=== PATIENT | male | born 1965 ===

== ENCOUNTER 2017-08-26 20:10 | Observation (INO) | payer OTHER ==
[2017-08-26 21:59] LABS: BASO % 0.5 % (0.0-2.0); EOS # 0.2 K/uL (0.0-0.7); EOS % 3.1 % (0.0-4.0); HEMOGLOBIN 14.9 g/dL (12.0-18.0); LYMPH # 2.9 K/uL (1.0-4.3); LYMPH % 38.8 % (20.0-40.0); MEAN CELL VOLUME 89.4 fl (80.0-94.0); MEAN CORPUSCULAR HEMOGLOBIN 30.4 pg (27.0-31.0); MEAN PLATELET VOLUME 8.8 fl (7.2-11.7); MONO # 0.5 K/uL (0.0-0.8); MONO % 6.7 % (0.0-10.0); NEUT # 3.8 K/uL (1.8-7.0); NEUT % 50.9 % (50.0-75.0); NRBC % 0.1 % (0.0-0.0); RBC 4.9 Mil/uL (4.40-5.90); RED CELL DISTRIBUTION WIDTH 13.3 % (11.5-14.5); WHITE BLOOD COUNT 7.4 K/uL (4.8-10.8)
--- NOTE | 2017-08-26 22:00 | ED PDOC ---
HPI: Chest Pain Time Seen by Provider: 08/26/17 20:32 Chief Complaint (Nursing): Chest Pain Chief Complaint (Provider): Chest Pain History Per: Patient History/Exam Limitations: no limitations Onset/Duration Of Symptoms: Days (x3), Intermittent Episodes Current Symptoms Are (Timing): Still Present Quality: Pressure Associated Symptoms: Dyspnea Exacerbating Factors: Exertion Alleviating Factors: Rest Additional Complaint(s): Moe Abrams is a 52 year old male, with a past medical history of HTN, diabetes and hypercholesterolemia, who presents to the emergency department complaining of intermittent chest pain associated with shortness of breath onset for x3 days. Patient states pain is exacerbated by exertion and resolves with rest. Pain does not radiate but it's localized on the left side and substernal region, described as pressure-like. She denies any fever, chills or other medical complaints. PMD: None provided. Past Medical History Reviewed: Historical Data, Nursing Documentation, Vital Signs Vital Signs: Last Vital Signs Temp 98.0 F 08/26/17 20:16 Pulse 80 08/26/17 22:55 Resp 16 08/26/17 20:16 BP 167/94 H 08/26/17 20:16 Pulse Ox 98 08/26/17 22:55 - Medical History PMH: Diabetes, HTN, Hypercholesterolemia - Surgical History Surgical History: No Surg Hx - Family History Family History: States: Diabetes - Social History Current smoker - smoking cessation education provided: No Alcohol: Occasional Drugs: Denies - Allergies Allergies/Adverse Reactions: Allergies Allergy/AdvReac Type Severity Reaction Status Date / Time No Known Allergies Allergy Verified 08/26/17 20:15 Review of Systems ROS Statement: Except As Marked, All Systems Reviewed And Found Negative Constitutional: Negative for: Fever, Chills Cardiovascular: Positive for: Chest Pain (pressure-like intermittent) Respiratory: Positive for: Shortness of Breath - Laboratory Results Result Diagrams: 08/26/17 21:50 08/26/17 21:50 - ECG ECG Rhythm: Positive for: Normal QRS, Normal ST Segment, Sinus Rhythm (normal) Rate: 80 O2 Sat by Pulse Oximetry: 98 (RA) Pulse Ox Interpretation: Normal Medical Decision Making Medical Decision Making: Initial Impression: Chest pain with cardiac risk factors, will need hospitalization with enzymes to rule out ACS. Differential includes but not limited to PE, costochondritis, angina. Initial Plan: --EKG --Alcohol serum --CMP --Magnesium --Phosphorus --Troponin I --Troponin I Q8H --Troponin I Q8H --Urine dipstick --CBC w/ differential --D Dimer --PTT --PT --Chest two views (PA/LAT) [RAD] --Aspirin 325 mg PO --Reevaluation -Labs demonstrate hypoglycemia, otherwise no clinical significant abnormality. CXR negative for effusion and infiltrate. 22:55 --Discussed case with Dr. Garcia for hospitalization. Scribe Attestation: Documented by Abdi Jaimes, acting as a scribe for Jessica Jiménez MD Provider Scribe Attestation: All medical record entries made by the Scribe were at my direction and personally dictated by me. I have reviewed the chart and agree that the record accurately reflects my personal performance of the history, physical exam, medical decision making, and the department course for this patient. I have also personally directed, reviewed, and agree with the discharge instructions and disposition. Disposition - Disposition Forms: [employer] (Latvian)
[2017-08-26 22:09] LABS: PROTHROMBIN TIME 10.2 Seconds (9.8-13.1)
[2017-08-26 22:10] LABS: INR 0.9 (0.9-1.2); PARTIAL THROMBOPLASTIN TIME 33.9 Seconds (25.6-37.1)
[2017-08-26 22:25] LABS: ALB/GLOB RATIO 1.3 (1.0-2.1); ALBUMIN 4.1 g/dL (3.5-5.0); ALT/SGPT 42 U/L (21-72); AST/SGOT 31 U/L (17-59); BLOOD UREA NITROGEN 15 mg/dl (9-20); CALCIUM 9.4 mg/dL (8.4-10.2); GFR AFRICAN-AMERICAN > 60; GFR NON-AFRICAN AMERICAN > 60
[2017-08-27 06:54] LABS: HDL CHOLESTEROL 36 MG/DL (30-70)
[2017-08-27 07:05] LABS: LDL CHOLESTEROL 149 mg/dL (0-129)
--- NOTE | 2017-08-27 08:09 | CARD ---
APPROVED REPORT EKG Measurement Heart [id number] <Conclusion> Normal sinus rhythm Normal ECG
--- NOTE | 2017-08-27 08:25 | RAD ---
HISTORY: chest pain COMPARISON: No prior. TECHNIQUE: Chest PA and lateral FINDINGS: LUNGS: No acute infiltrate bilaterally. Linear atelectasis or fibrosis seen minimally at the left base. Borderline left hemidiaphragm elevation. PLEURA: No significant pleural effusion identified. No pneumothorax apparent. CARDIOVASCULAR: Normal. OSSEOUS STRUCTURES: No significant abnormalities. VISUALIZED UPPER ABDOMEN: Normal. OTHER FINDINGS: None. IMPRESSION: Borderline left hemidiaphragm elevation. Trace linear atelectasis or fibrosis left base. No acute infiltrate or pleural effusion bilaterally.
--- NOTE | 2017-08-27 09:41 | HP ---
HISTORY OF PRESENT ILLNESS: Mr. Abrams is a 52-year-old male who was admitted via the Emergency Room because of chest pain, which started about 3 days prior to this presentation. He indicates the pain is pressure-like in nature and radiates to the left side of the arm. He did not want to come to the Emergency Room because pain was on and off for the past several days. He finally decided to have it checked out. PAST MEDICAL HISTORY: Hypertension, hyperlipidemia, and diabetes but has been noncompliant to follow up . FAMILY HISTORY: Remarkable for mother who has hypertension. SOCIAL HISTORY: He denies alcohol or drug use, but indicated that he has been on disability for the past several years because of back problems. PHYSICAL EXAMINATION: GENERAL: The patient is alert and oriented. VITAL SIGNS: Blood pressure 167/94 with the pulse of 80, respiratory rate is 18. He is febrile. O2 sat is 98% on room air. SKIN: Shows fair turgor. HEENT: Pupils are equal and reactive to light and accommodation. JVP flat. LUNGS: Clear. HEART: Regular. No murmurs or gallop. No chest wall tenderness. ABDOMEN: Soft and nontender, no organomegaly. EXTREMITIES: Appear unkempt with dirty fingers. RECTAL AND GENITALIA: Deferred. CENTRAL NERVOUS SYSTEM: Grossly intact. LABORATORY DATA: WBC 7.4, hemoglobin 14.9, and platelet count 177,000. Sodium 142, potassium 4.2, BUN 15, creatinine 0.6, and serum glucose 285. EKG; normal sinus rhythm, official report pending. Chest x-ray; no acute cardiopulmonary pathology noted. Lipid profile; cholesterol 203, triglycerides 155, and LDL 149. Troponin less than 0.012. IMPRESSION: Chest pain, one has to rule out acute coronary syndrome, hypertension, hyperglycemia secondary to type 2 diabetes, uncontrolled. PLAN: The plan is cardiology evaluation. If the patient is cleared by Cardiology, we will probably discharge and have him follow up with his primary care physician as an outpatient. He is advised to comply with his medications, which have been reordered including aspirin and Lovenox. Peter Garcia MD [facility] # [id number]
--- NOTE | 2017-08-27 11:19 | CP.PCM.CON ---
History of Present Illness - History of Present Illness History of Present Illness: 52 y/o male admitted with chest pains Pt has had these pains daily x 3 days usually comes on at rest lasts 1 hour no relation to exertion no radiation Troponins: neg EKG: normal PMH: HTN DM II Hyperlipidemia Past Patient History - Past Medical History & Family History Past Medical History?: Yes - Past Social History Smoking Status: Former Smoker - CARDIAC Hx Cardiac Disorders: Yes Hx Hypercholesterolemia: Yes Hx Hypertension: Yes - PULMONARY Hx Respiratory Disorders: No - NEUROLOGICAL Hx Neurological Disorder: No - HEENT Hx HEENT Problems: No - RENAL Hx Chronic Kidney Disease: No - ENDOCRINE/METABOLIC Hx Endocrine Disorders: Yes Hx Diabetes Mellitus Type 2: Yes - HEMATOLOGICAL/ONCOLOGICAL Hx Blood Disorders: No - INTEGUMENTARY Hx Dermatological Problems: No - MUSCULOSKELETAL/RHEUMATOLOGICAL Hx Musculoskeletal Disorders: No Hx Falls: No - GASTROINTESTINAL Hx Gastrointestinal Disorders: No - GENITOURINARY/GYNECOLOGICAL Hx Genitourinary Disorders: No - PSYCHIATRIC Hx Psychophysiologic Disorder: No Hx Substance Use: No - SURGICAL HISTORY Hx Surgeries: No - ANESTHESIA Hx Anesthesia: No Hx Anesthesia Reactions: No Hx Malignant Hyperthermia: No Has any member of the family had a problem w/ anesthesia?: No Meds Allergies/Adverse Reactions: Allergies Allergy/AdvReac Type Severity Reaction Status Date / Time No Known Allergies Allergy Verified 08/26/17 20:15 - Medications Medications: Current Medications Aspirin (Ecotrin) 81 mg PO DAILY [facility] Last Admin: 08/27/17 09:00 Dose: 81 mg Ibuprofen (Motrin Tab) 600 mg PO Q6 PRN PRN Reason: Pain, moderate (4-7) Metformin HCl (Glucophage) 1,000 mg PO BID [facility] Last Admin: 08/27/17 09:00 Dose: 1,000 mg Physical Exam - Constitutional Appears: Well - Neck Exam Neck exam: Positive for: Normal Inspection - Respiratory Exam Respiratory Exam: NORMAL BREATHING PATTERN - Cardiovascular Exam Cardiovascular Exam: REGULAR RHYTHM Results - Vital Signs Recent Vital Signs: Last Vital Signs Temp 98 F 08/27/17 08:00 Pulse 60 08/27/17 08:00 Resp 18 08/27/17 08:00 BP 120/71 08/27/17 08:00 Pulse Ox 98 08/27/17 08:00 - Labs Result Diagrams: 08/26/17 21:50 08/26/17 21:50 Labs: Laboratory Results - last 24 hr 08/26/17 08/26/17 08/26/17 21:36 21:50 21:50 WBC 7.4 RBC 4.90 Hgb 14.9 Hct 43.8 MCV 89.4 MCH 30.4 MCHC 34.0 RDW 13.3 Plt Count 177 MPV 8.8 Neut % (Auto) 50.9 Lymph % (Auto) 38.8 Custer % (Auto) 6.7 Eos % (Auto) 3.1 Baso % (Auto) 0.5 Neut # (Auto) 3.8 Lymph # (Auto) 2.9 Custer # (Auto) 0.5 Eos # (Auto) 0.2 Baso # (Auto) 0.0 PT INR APTT D-Dimer, Quantitative Sodium 142 Potassium 4.2 Chloride 99 Carbon Dioxide 27 Anion Gap 20 BUN 15 Creatinine 0.6 L Est GFR ( Amer) > 60 Est GFR (Non-Af Amer) > 60 POC Glucose (mg/dL) 273 H Random Glucose 285 H Calcium 9.4 Phosphorus 3.3 Magnesium 1.7 Total Bilirubin 0.3 AST 31 ALT 42 Alkaline Phosphatase 98 Troponin I < 0.0120 Total Protein 7.3 Albumin 4.1 Globulin 3.2 Albumin/Globulin Ratio 1.3 Triglycerides Cholesterol LDL Cholesterol Direct HDL Cholesterol Alcohol, Quantitative < 10 08/26/17 08/27/17 08/27/17 21:50 05:21 06:00 WBC RBC Hgb Hct MCV MCH MCHC RDW Plt Count MPV Neut % (Auto) Lymph % (Auto) Custer % (Auto) Eos % (Auto) Baso % (Auto) Neut # (Auto) Lymph # (Auto) Custer # (Auto) Eos # (Auto) Baso # (Auto) PT 10.2 INR 0.9 APTT 33.9 D-Dimer, Quantitative 106 Sodium Potassium Chloride Carbon Dioxide Anion Gap BUN Creatinine Est GFR ( Amer) Est GFR (Non-Af Amer) POC Glucose (mg/dL) 219 H Random Glucose Calcium Phosphorus Magnesium Total Bilirubin AST ALT Alkaline Phosphatase Troponin I < 0.0120 Total Protein Albumin Globulin Albumin/Globulin Ratio Triglycerides Cholesterol LDL Cholesterol Direct HDL Cholesterol Alcohol, Quantitative 08/27/17 06:00 WBC RBC Hgb Hct MCV MCH MCHC RDW Plt Count MPV Neut % (Auto) Lymph % (Auto) Custer % (Auto) Eos % (Auto) Baso % (Auto) Neut # (Auto) Lymph # (Auto) Custer # (Auto) Eos # (Auto) Baso # (Auto) PT INR APTT D-Dimer, Quantitative Sodium Potassium Chloride Carbon Dioxide Anion Gap BUN Creatinine Est GFR ( Amer) Est GFR (Non-Af Amer) POC Glucose (mg/dL) Random Glucose Calcium Phosphorus Magnesium Total Bilirubin AST ALT Alkaline Phosphatase Troponin I Total Protein Albumin Globulin Albumin/Globulin Ratio Triglycerides 155 H Cholesterol 203 H LDL Cholesterol Direct 149 H HDL Cholesterol 36 Alcohol, Quantitative Assessment & Plan (1) Atypical chest pain Assessment and Plan: Non cardiac chest pain pt may be d/c ed Status: Acute
[2017-08-27 12:28] VITALS: BP 137/78; PULSE 73; RESP 20; TEMP 98.5; O2SAT 95
--- NOTE | 2017-08-30 09:36 | CP.PCM.DIS ---
Provider - Provider Date of Admission: 08/26/17 22:53 Attending physician: Peter Garcia MD Time Spent in preparation of Discharge (in minutes): 30 Diagnosis - Discharge Diagnosis (1) Hypertension Status: Acute (2) Diabetes 1.5, managed as type 2 Status: Acute (3) Atypical chest pain Status: Acute Hospital Course - Lab Results Lab Results: Most Recent Lab Values WBC 7.4 K/uL (4.8-10.8) 08/26/17 21:50 RBC 4.90 Mil/uL (4.40-5.90) 08/26/17 21:50 Hgb 14.9 g/dL (12.0-18.0) 08/26/17 21:50 Hct 43.8 % (35.0-51.0) 08/26/17 21:50 MCV 89.4 fl (80.0-94.0) 08/26/17 21:50 MCH 30.4 pg (27.0-31.0) 08/26/17 21:50 MCHC 34.0 g/dL (33.0-37.0) 08/26/17 21:50 RDW 13.3 % (11.5-14.5) 08/26/17 21:50 Plt Count 177 K/uL (130-400) 08/26/17 21:50 MPV 8.8 fl (7.2-11.7) 08/26/17 21:50 Neut % (Auto) 50.9 % (50.0-75.0) 08/26/17 21:50 Lymph % (Auto) 38.8 % (20.0-40.0) 08/26/17 21:50 Cameron % (Auto) 6.7 % (0.0-10.0) 08/26/17 21:50 Eos % (Auto) 3.1 % (0.0-4.0) 08/26/17 21:50 Baso % (Auto) 0.5 % (0.0-2.0) 08/26/17 21:50 Neut # (Auto) 3.8 K/uL (1.8-7.0) 08/26/17 21:50 Lymph # (Auto) 2.9 K/uL (1.0-4.3) 08/26/17 21:50 Cameron # (Auto) 0.5 K/uL (0.0-0.8) 08/26/17 21:50 Eos # (Auto) 0.2 K/uL (0.0-0.7) 08/26/17 21:50 Baso # (Auto) 0.0 K/uL (0.0-0.2) 08/26/17 21:50 PT 10.2 Seconds (9.8-13.1) 08/26/17 21:50 INR 0.9 (0.9-1.2) 08/26/17 21:50 APTT 33.9 Seconds (25.6-37.1) 08/26/17 21:50 D-Dimer, Quantitative 106 ng/mlDDU (0-230) 08/26/17 21:50 Sodium 142 mmol/l (132-148) 08/26/17 21:50 Potassium 4.2 MMOL/L (3.6-5.0) 08/26/17 21:50 Chloride 99 mmol/L (98-107) 08/26/17 21:50 Carbon Dioxide 27 mmol/L (22-30) 08/26/17 21:50 Anion Gap 20 (10-20) 08/26/17 21:50 BUN 15 mg/dl (9-20) 08/26/17 21:50 Creatinine 0.6 mg/dl (0.8-1.5) L 08/26/17 21:50 Est GFR ( Amer) > 60 08/26/17 21:50 Est GFR (Non-Af Amer) > 60 08/26/17 21:50 POC Glucose (mg/dL) 308 mg/dL (65-110) H 08/27/17 11:26 Random Glucose 285 mg/dL (75-110) H 08/26/17 21:50 Calcium 9.4 mg/dL (8.4-10.2) 08/26/17 21:50 Phosphorus 3.3 mg/dl (2.5-4.5) 08/26/17 21:50 Magnesium 1.7 MG/DL (1.6-2.3) 08/26/17 21:50 Total Bilirubin 0.3 mg/dl (0.2-1.3) 08/26/17 21:50 AST 31 U/L (17-59) 08/26/17 21:50 ALT 42 U/L (21-72) 08/26/17 21:50 Alkaline Phosphatase 98 U/L (38-126) 08/26/17 21:50 Troponin I < 0.0120 ng/mL (0.00-0.120) 08/27/17 14:01 Total Protein 7.3 G/DL (6.3-8.2) 08/26/17 21:50 Albumin 4.1 g/dL (3.5-5.0) 08/26/17 21:50 Globulin 3.2 gm/dL (2.2-3.9) 08/26/17 21:50 Albumin/Globulin Ratio 1.3 (1.0-2.1) 08/26/17 21:50 Triglycerides 155 mg/DL (0-149) H 08/27/17 06:00 Cholesterol 203 mg/dL (0-199) H 08/27/17 06:00 LDL Cholesterol Direct 149 mg/dL (0-129) H 08/27/17 06:00 HDL Cholesterol 36 MG/DL (30-70) 08/27/17 06:00 Alcohol, Quantitative < 10 mg/dl (0-10) 08/26/17 21:50 - Hospital Course Hospital Course: CHEST PAINS RESOLVED ALL WORKUP NON-REVEALING Discharge Exam - Head Exam Head Exam: ATRAUMATIC, NORMAL INSPECTION, NORMOCEPHALIC - Eye Exam Eye Exam: EOMI, Normal appearance, PERRL Pupil Exam: NORMAL ACCOMODATION, PERRL - GI/Abdominal Exam GI & Abdominal Exam: Normal Bowel Sounds - Rectal Exam Rectal Exam: NORMAL INSPECTION - Neurological Exam Neurological exam: Alert, CN II-XII Intact, Normal Gait, Oriented x3, Reflexes Normal - Psychiatric Exam Psychiatric exam: Normal Affect, Normal Mood - Skin Skin Exam: Dry, Intact, Normal Color, Warm Discharge Plan - Discharge Medications Prescriptions: Metformin HCl [Glucophage] 1,000 mg PO BID #60 tablet - Follow Up Plan Condition: FAIR Disposition: HOME/ ROUTINE Patient education suggested?: Yes Instructions: Chest Pain That Is Not Caused by the Heart (DC) Additional Instructions: follow up with pmd in 1 week Referrals: Marino Lanier MD [Staff Provider] -
== END 2017-08-27 15:30 | disposition home or self-care (01) ==
LOC: H.ER 20:10 → H.ERHOLD 22:53 → H.TEL 08-27 03:10
PROVIDERS: ADMIT Internal Medicine Pulmonary Disease; ATTEND Internal Medicine Pulmonary Disease
DX: R07.89 Other chest pain (principal); I10 Essential (primary) hypertension; E11.65 Type 2 diabetes mellitus with hyperglycemia; E78.00 Pure hypercholesterolemia, unspecified; E78.5 Hyperlipidemia, unspecified; Z87.891 Personal history of nicotine dependence; Z91.19 Patient's noncompliance with other medical treatment and regimen
CPT/HCPCS: 36415; 71046; 80053; 80061; 80320; 82948; 83735; 84100; 84484; 85025; 85378; 85610; 85730; 93005; 99285; G0378